=== PATIENT | male | born 1940 | race Caucasian/White ===

== ENCOUNTER 2017-01-12 02:14 | Inpatient (IN) | payer OTHER ==
[~2017-01-12] VITALS: Ht 160 cm; Wt 72.1 kg
[~2017-01-12 02:14] MED LIST: ALD25 PO; ASPIR 8181 MG PO; BAY PO; CARVEDILOL25 M1 PO; CEFTRIAXON1 GM/50 M1 IV; CLINDAMYCIN HC300 MG PO; COZ25 PO; COZAAR50 MG PO; FUROSEMIDE20 MG PO; GLU850 PO; HUMALOG100 U/ML SC; IPRATROPIUM BROM3 M2 HHN; LAC PO; LASIX20 MG PO; LEVAQUIN750 MG PO; LEVEMIR100 U/M1 SC; LIPI10 PO; LOM PO; LOSARTAN POTASS50 M1 PO; LOV40I SQ; METFORMIN500 M1 PO; NEU300 PO; PENTOXIFYL XR400 M1 PO; POTASSIUM CHLO20 ME1 PO; PROTONIX40 MG PO; SINEMET 25-1001 TAB PO; TAMSULOSIN HCL0.4 MG PO; THERAGRAN-M1 TA4 PO
[2017-01-12 03:33] LABS: BASOPHIL % 0.4 % (0-2); PLATELET COUNT 160 x10^3mcL (130-400)
[2017-01-12 03:37] LABS: RED CELL DISTRIBUTION WIDTH 20.9 % (11.5-14.5)
[2017-01-12 03:54] LABS: microscopic required? YES; urine erythrocyte NEGATIVE (NEGATIVE)
[2017-01-12 04:02] LABS: CALCIUM 8.5 mg/dL (8.5-10.1); CARBON DIOXIDE 17.9 mmol/L (21-32); CHLORIDE SERUM 108 mmol/L (98-107); CREATININE SERUM 1.8 mg/dL (0.7-1.3); GLUCOSE SERUM 137 mg/dL (74-106); POTASSIUM SERUM 4.5 mmol/L (3.5-5.1); SODIUM SERUM 138 mmol/L (136-145)
[2017-01-12 04:04] LABS: CK-MB 2.1 ng/mL (0-3.6)
[2017-01-12 04:07] LABS: ALBUMIN 3.3 g/dL (3.4-5.0); ALKALINE PHOSPHATASE 95 U/L (46-116); ALT/SGPT 22 U/L (16-63); AST/SGOT 16 U/L (15-37); BILIRUBIN TOTAL 0.82 mg/dL (0.20-1.00); TOTAL PROTEIN, SERUM 7.1 g/dL (6.4-8.2)
[2017-01-12 04:09] LABS: AMPHETAMINE QUAL UR NONE DETECTED (NEG <=1000)
[2017-01-12 05:55] LABS: T3 TOTAL 0.58 ng/mL
[2017-01-12 05:58] LABS: MAGNESIUM 1.9 mg/dL (1.8-2.4)
[2017-01-12 06:03] LABS: CHOLESTEROL/HDL RATIO 3.2
[2017-01-12 06:10] LABS: FREE T4 1.42 ng/dL (0.76-1.46); FREE THYROXINE INDEX 2.2 ug/dL (1.4-4.5); T4(THYROXINE) 5.9 ug/dL (4.7-13.3)
[2017-01-12 06:40] VITALS: BP 132/68
[2017-01-12 10:46] VITALS: BP 98/47
[2017-01-12 14:16] VITALS: BP 116/61
[2017-01-12 17:39] VITALS: BP 102/53
[2017-01-12 21:01] VITALS: BP 155/56
[2017-01-13 05:30] VITALS: BP 150/58
[2017-01-13 08:13] LABS: BASOPHIL % 0.2 % (0-2); PLATELET COUNT 161 x10^3mcL (130-400)
[2017-01-13 08:22] LABS: CALCIUM 8.2 mg/dL (8.5-10.1); CARBON DIOXIDE 22.6 mmol/L (21-32); CHLORIDE SERUM 110 mmol/L (98-107); CREATININE SERUM 1.7 mg/dL (0.7-1.3); GLUCOSE SERUM 134 mg/dL (74-106); POTASSIUM SERUM 4.3 mmol/L (3.5-5.1); SODIUM SERUM 144 mmol/L (136-145)
[2017-01-13 10:12] LABS: rbc morphology (normal/abnorm) ABNORMAL (NORMAL); schistocyte (helmet cell) 1+
[2017-01-13 10:22] VITALS: BP 116/56
[2017-01-13 14:20] VITALS: BP 120/63
[2017-01-13 17:09] VITALS: BP 127/67
[2017-01-13 21:11] VITALS: BP 127/59
[2017-01-14 06:21] VITALS: BP 121/62
[2017-01-14 06:24] LABS: CALCIUM 8.4 mg/dL (8.5-10.1); CARBON DIOXIDE 22.5 mmol/L (21-32); CHLORIDE SERUM 107 mmol/L (98-107); CREATININE SERUM 1.5 mg/dL (0.7-1.3); GLUCOSE SERUM 126 mg/dL (74-106); POTASSIUM SERUM 3.7 mmol/L (3.5-5.1); SODIUM SERUM 144 mmol/L (136-145)
[2017-01-14 06:47] LABS: BASOPHIL % 0.2 % (0-2); PLATELET COUNT 181 x10^3mcL (130-400); RED CELL DISTRIBUTION WIDTH 20.9 % (11.5-14.5)
[2017-01-14 06:48] LABS: rbc morphology (normal/abnorm) ABNORMAL (NORMAL)
[2017-01-14 11:03] VITALS: BP 111/69
[2017-01-14 14:06] VITALS: BP 120/64
[2017-01-14 17:03] VITALS: BP 113/61
[2017-01-14 21:27] VITALS: BP 118/64
[2017-01-15 05:35] VITALS: BP 117/57
[2017-01-15 06:27] LABS: BASOPHIL % 0.4 % (0-2); CALCIUM 8.9 mg/dL (8.5-10.1); CARBON DIOXIDE 25.7 mmol/L (21-32); CHLORIDE SERUM 108 mmol/L (98-107); CREATININE SERUM 1.4 mg/dL (0.7-1.3); GLUCOSE SERUM 99 mg/dL (74-106); PLATELET COUNT 194 x10^3mcL (130-400); POTASSIUM SERUM 3.4 mmol/L (3.5-5.1); SODIUM SERUM 145 mmol/L (136-145)
[2017-01-15 06:58] LABS: RED CELL DISTRIBUTION WIDTH 20.4 % (11.5-14.5)
[2017-01-15 09:33] VITALS: BP 149/65
[2017-01-15] MEDS ORDERED: QUETIAPINE FUMA25 M1 PO (09:40)
[2017-01-15] MEDS ORDERED: LAC PO (09:41)
[2017-01-15] MEDS ORDERED: BACO TOP (09:41)
[2017-01-15] MEDS ORDERED: HIBICLENS118 ML TOP (09:41)
[2017-01-15] MEDS ORDERED: CIPRO250 MG PO (09:42)
[2017-01-15 10:00] VITALS: BP 149/65
[2017-01-15 13:40] VITALS: BP 108/49
== END 2017-01-15 15:30 | disposition home health service (06) | DRG 312 ==
LOC: ED 02:14 → DU 05:02
PROVIDERS: Emergency Medicine; Family Medicine; ADMIT Family Medicine
DX: R55 Syncope and collapse (principal); I50.43 Acute on chronic combined systolic (congestive) and diastolic (congestive) heart failure; N17.0 Acute kidney failure with tubular necrosis; E44.1 Mild protein-calorie malnutrition; D68.69 Other thrombophilia; N39.0 Urinary tract infection, site not specified; I42.9 Cardiomyopathy, unspecified; S09.90XA Unspecified injury of head, initial encounter; I34.0 Nonrheumatic mitral (valve) insufficiency; E86.0 Dehydration; G20 Parkinson's disease; E11.51 Type 2 diabetes mellitus with diabetic peripheral angiopathy without gangrene; E11.65 Type 2 diabetes mellitus with hyperglycemia; E11.42 Type 2 diabetes mellitus with diabetic polyneuropathy; E02 Subclinical iodine-deficiency hypothyroidism; N40.0 Benign prostatic hyperplasia without lower urinary tract symptoms; I25.10 Atherosclerotic heart disease of native coronary artery without angina pectoris; Z90.5 Acquired absence of kidney; Z95.0 Presence of cardiac pacemaker; Z79.82 Long term (current) use of aspirin; Z79.84 Long term (current) use of oral hypoglycemic drugs; Z95.5 Presence of coronary angioplasty implant and graft; Z85.520 Personal history of malignant carcinoid tumor of kidney; W18.39XA Other fall on same level, initial encounter; Y93.89 Activity, other specified; Y92.89 Other specified places as the place of occurrence of the external cause
CPT/HCPCS: 80307; 83880; 84439; 97110-GP; 97116-GP; 97530-GP; G0480; J0696; J1940; J7030; Q0092

== ENCOUNTER 2017-01-28 19:41 | Inpatient (IN) | payer OTHER ==
[~2017-01-28] VITALS: Ht 167.6 cm; Wt 70.8 kg
[~2017-01-28 19:41] MED LIST changes: +BACO TOP; +CIPRO250 MG PO; +HIBICLENS118 ML TOP; +QUETIAPINE FUMA25 M1 PO
[2017-01-28 20:41] LABS: BASOPHIL % 0.1 % (0-2); PLATELET COUNT 155 x10^3mcL (130-400)
[2017-01-28 20:43] LABS: RED CELL DISTRIBUTION WIDTH 19.1 % (11.5-14.5)
[2017-01-28 20:50] LABS: CARBON DIOXIDE 20.9 mmol/L (21-32); CHLORIDE SERUM 107 mmol/L (98-107); CREATININE SERUM 1.8 mg/dL (0.7-1.3); GLUCOSE SERUM 109 mg/dL (74-106); POTASSIUM SERUM 5.1 mmol/L (3.5-5.1); SODIUM SERUM 141 mmol/L (136-145)
[2017-01-28 20:54] LABS: ALBUMIN 3.5 g/dL (3.4-5.0); ALKALINE PHOSPHATASE 90 U/L (46-116); ALT/SGPT 19 U/L (16-63); AST/SGOT 34 U/L (15-37); BILIRUBIN TOTAL 1.17 mg/dL (0.20-1.00); MAGNESIUM 1.8 mg/dL (1.8-2.4); TOTAL PROTEIN, SERUM 7.3 g/dL (6.4-8.2)
[2017-01-28 21:11] LABS: UA SPECIFIC GRAVITY 1.025 (1.005-1.035); microscopic required? YES; urine erythrocyte 2+ (NEGATIVE)
[2017-01-28 23:24] LABS: CHOLESTEROL/HDL RATIO 3.2; PHOSPHOROUS 4.4 mg/dL (2.5-4.9)
[2017-01-29 02:41] VITALS: BP 109/50
[2017-01-29 06:09] VITALS: BP 117/54
[2017-01-29 06:38] LABS: BASOPHIL % 0.2 % (0-2); PLATELET COUNT 148 x10^3mcL (130-400)
[2017-01-29 06:47] LABS: CALCIUM 9.1 mg/dL (8.5-10.1); CARBON DIOXIDE 21.3 mmol/L (21-32); CHLORIDE SERUM 108 mmol/L (98-107); CREATININE SERUM 1.7 mg/dL (0.7-1.3); GLUCOSE SERUM 80 mg/dL (74-106); MAGNESIUM 1.8 mg/dL (1.8-2.4); PHOSPHOROUS 4.9 mg/dL (2.5-4.9); POTASSIUM SERUM 4.6 mmol/L (3.5-5.1); SODIUM SERUM 142 mmol/L (136-145)
[2017-01-29 06:55] LABS: RED CELL DISTRIBUTION WIDTH 18.8 % (11.5-14.5)
[2017-01-29 09:34] VITALS: BP 109/46
[2017-01-29 14:51] VITALS: BP 127/54
[2017-01-29 18:17] VITALS: BP 120/55
[2017-01-29 21:49] VITALS: BP 120/60
[2017-01-30 01:03] VITALS: BP 122/60
[2017-01-30 05:59] VITALS: BP 143/70
[2017-01-30 06:57] LABS: BASOPHIL % 0.3 % (0-2); PLATELET COUNT 154 x10^3mcL (130-400)
[2017-01-30 09:10] LABS: CALCIUM 8.8 mg/dL (8.5-10.1); CHLORIDE SERUM 107 mmol/L (98-107); CREATININE SERUM 1.5 mg/dL (0.7-1.3); GLUCOSE SERUM 83 mg/dL (74-106); MAGNESIUM 1.5 mg/dL (1.8-2.4); PHOSPHOROUS 3.6 mg/dL (2.5-4.9); POTASSIUM SERUM 4.2 mmol/L (3.5-5.1); SODIUM SERUM 141 mmol/L (136-145)
[2017-01-30 10:00] VITALS: BP 126/67
[2017-01-30 14:00] VITALS: BP 100/48
[2017-01-30 18:41] VITALS: BP 110/55
[2017-01-30 21:33] VITALS: BP 108/62
[2017-01-31 05:39] VITALS: BP 127/68
[2017-01-31 06:18] LABS: BASOPHIL % 0.3 % (0-2); PLATELET COUNT 155 x10^3mcL (130-400)
[2017-01-31 06:34] LABS: CALCIUM 8.7 mg/dL (8.5-10.1); CHLORIDE SERUM 103 mmol/L (98-107); CREATININE SERUM 1.5 mg/dL (0.7-1.3); GLUCOSE SERUM 187 mg/dL (74-106); MAGNESIUM 1.9 mg/dL (1.8-2.4); PHOSPHOROUS 3.8 mg/dL (2.5-4.9); POTASSIUM SERUM 3.6 mmol/L (3.5-5.1); SODIUM SERUM 128 mmol/L (136-145)
[2017-01-31 06:46] LABS: RED CELL DISTRIBUTION WIDTH 18.6 % (11.5-14.5)
[2017-01-31 10:53] VITALS: BP 118/62
[2017-01-31 12:57] LABS: CALCIUM 8.9 mg/dL (8.5-10.1); CARBON DIOXIDE 27.3 mmol/L (21-32); CHLORIDE SERUM 103 mmol/L (98-107); CREATININE SERUM 1.5 mg/dL (0.7-1.3); GLUCOSE SERUM 159 mg/dL (74-106); SODIUM SERUM 139 mmol/L (136-145)
[2017-01-31 18:07] VITALS: BP 120/55
[2017-01-31 21:35] VITALS: BP 114/70
[2017-02-01 02:34] VITALS: Ht 167.6 cm; Wt 70.8 kg
[2017-02-01 05:28] VITALS: BP 118/59
[2017-02-01 11:37] VITALS: BP 110/55
[2017-02-01] MEDS ORDERED: COZ50 PO (16:10)
[2017-02-01] MEDS ORDERED: COREG12.5 MG PO (16:12)
[2017-02-01] MEDS ORDERED: ALD25 PO (16:13)
[2017-02-01] MEDS ORDERED: SERO100 PO (16:31)
[2017-02-01] MEDS ORDERED: QUETIAPINE FUMA25 M1 PO (16:32)
[2017-02-01] MEDS ORDERED: PRI20 PO (16:34)
[2017-02-01] MEDS ORDERED: BG FS (16:35)
[2017-02-01] MEDS ORDERED: HUMULIN R100 U/1 M1 SC (16:36)
[2017-02-01 17:31] VITALS: BP 110/55
[2017-02-01 17:38] VITALS: BP 110/55
[2017-02-01 17:52] VITALS: BP 110/55
== END 2017-02-01 20:20 | DRG 291 ==
LOC: ED 19:41 → DU 01-29 00:16 → MU 01-29 00:16 → DU 01-29 01:59 → MU 01-31 10:43
PROVIDERS: Emergency Medicine; ADMIT Family Medicine
DX: I50.43 Acute on chronic combined systolic (congestive) and diastolic (congestive) heart failure (principal); N17.0 Acute kidney failure with tubular necrosis; I42.9 Cardiomyopathy, unspecified; R55 Syncope and collapse; E11.51 Type 2 diabetes mellitus with diabetic peripheral angiopathy without gangrene; E11.42 Type 2 diabetes mellitus with diabetic polyneuropathy; E11.59 Type 2 diabetes mellitus with other circulatory complications; E11.65 Type 2 diabetes mellitus with hyperglycemia; G20 Parkinson's disease; R26.81 Unsteadiness on feet; L89.152 Pressure ulcer of sacral region, stage 2; M51.36 Other intervertebral disc degeneration, lumbar region; I25.10 Atherosclerotic heart disease of native coronary artery without angina pectoris; I34.0 Nonrheumatic mitral (valve) insufficiency; N40.0 Benign prostatic hyperplasia without lower urinary tract symptoms; D64.9 Anemia, unspecified; Z79.82 Long term (current) use of aspirin; Z68.25 Body mass index [BMI] 25.0-25.9, adult; Z87.891 Personal history of nicotine dependence; Z95.5 Presence of coronary angioplasty implant and graft; Z85.520 Personal history of malignant carcinoid tumor of kidney; Z90.5 Acquired absence of kidney; Z95.810 Presence of automatic (implantable) cardiac defibrillator; Z79.84 Long term (current) use of oral hypoglycemic drugs
CPT/HCPCS: 36600; 83880; 97110-GP; 97116-GP; 97530-GP; J1940; J3475; J3490; J7030; J7040; Q0092